=== PATIENT | male | born 1950 | race Caucasian/White ===

== ENCOUNTER → 2019-05-17 | Outpatient (CLI) | payer MEDICARE, OTHER ==
[~2019-05-17] MED LIST: HYDACE5 PO; LOVA40; MULVITMINF; PRED1SU; PSEU120ER
== END | disposition home or self-care (01) ==
LOC: LAB SHORT 11:52 → PLD 11:52
DX: D48.5 Neoplasm of uncertain behavior of skin (principal)
CPT/HCPCS: 88305

== ENCOUNTER → 2019-10-24 | Outpatient (CLI) | payer MEDICARE, OTHER | END | disposition home or self-care (01) | LOC: PLD 10:09 → LAB SHORT 10:09 | DX: D48.5 Neoplasm of uncertain behavior of skin (principal) | CPT/HCPCS: 88305 ==